=== PATIENT | male | born 1995 | race Caucasian/White ===

== ENCOUNTER 2018-09-02 12:23 | Emergency (ER) | payer SELFPAY ==
[2018-09-02 12:57] VITALS: BP 118/75
== END 2018-09-02 16:20 | disposition left against medical advice (07) ==
LOC: ER 12:47
DX: Z53.21 Procedure and treatment not carried out due to patient leaving prior to being seen by health care provider (principal); F17.200 Nicotine dependence, unspecified, uncomplicated

== ENCOUNTER 2018-09-05 15:36 | Emergency (ER) | payer SELFPAY ==
[~2018-09-05] VITALS: Ht 170.2 cm; Wt 81.0 kg
[2018-09-05 18:40] VITALS: BP 120/74
== END 2018-09-05 19:05 | disposition home or self-care (01) ==
LOC: ER 16:28
DX: L30.9 Dermatitis, unspecified (principal); Z91.018 Allergy to other foods
CPT/HCPCS: 99283